=== PATIENT | male | born 2000 | race Caucasian/White ===

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

== ENCOUNTER 2019-08-22 09:18 | Inpatient (IN) ==
[2019-08-22] MEDS ORDERED: ONDANSETRON INJ 2 MG/ML 2 ML VIAL IV STA (09:32)
[2019-08-22] MEDS ORDERED: LORazepam 2 MG/4 ML VIAL IV STA ×3 (09:33→11:51)
[2019-08-22] MEDS ORDERED: FAMOTIDINE 20MG/5ML IV PUSH IV STA (09:33)
[2019-08-22] MEDS ORDERED: SODIUM CHLORIDE 0.9% 1000ML 1,000 ML IV SCH (09:45)
[2019-08-22 09:50] LABS: Basophils # (auto) 0.05 K/uL (0-0.2); Basophils % (auto) 0.5 %; Eosinophils # (auto) 0.32 K/uL (0-0.5); Eosinophils % (auto) 3.2 %; Hematocrit (blood only) 49.6 % (42-52); Hemoglobin 18.1 g/dL (14.0-18.0); Immature Granulocytes # (auto) 0.01 K/uL (0.00-0.02); Immature Granulocytes % (auto) 0.1 %; Lymphocytes # (auto) 3.25 K/uL (1.2-3.4); Lymphocytes % (auto) 32.6 %; Mean Corpuscular Hemoglobin 33.3 pg (25-34); Mean Corpuscular Hgb Conc 36.5 g/dL (32-36); Mean Corpuscular Volume 91.3 fL (80-100); Mean Platelet Volume 9.5 fL (7.4-10.4); Monocytes # (auto) 0.81 K/uL (0.11-0.59); Monocytes % (auto) 8.1 %; Neutrophils # (auto) 5.52 K/uL (1.4-6.5); Neutrophils % (auto) 55.5 %; Platelet Count 308 K/uL (130-400); RDW Coefficient of Variation 12.5 % (11.5-14.5); RDW Standard Deviation 41.6 fL (36.4-46.3); Red Blood Count 5.43 M/uL (4.7-6.1); White Blood Count 9.96 K/uL (4.8-10.8)
--- NOTE | 2019-08-22 10:00 | XRay Report ---
SINGLE VIEW CHEST CLINICAL HISTORY: Vomiting. FINDINGS: An AP, portable, upright chest radiograph is compared to study dated 05/31/2018. The cardio mediastinal silhouette is unremarkable. The lungs and pleural spaces are clear. No pneumothorax is se en. The bony thorax is grossly intact. IMPRESSION: No active disease in the chest. ACT 112: Negative or not required by law. Electronically signed by: Ramu Guzman M.D. 08/22/2019 9:58 AM
[2019-08-22 10:05] LABS: Albumin Level 5.1 gm/dl (3.4-5.0); BUN Creatinine Ratio 5.7 (10-20); Calcium 10.1 mg/dl (8.5-10.1); Creatinine Clr Calc Pharmacy 105.1 ml/min; Est GFR (African American) 98.6; Est GFR (Non-African American) 85.1; Potassium 3.9 mmol/L (3.5-5.1)
[2019-08-22 10:08] LABS: Albumin Globulin Ratio 1.3 (0.9-2); Bilirubin,Total 0.7 mg/dl (0.2-1); Total Protein 9.1 gm/dl (6.4-8.2)
[2019-08-22] MEDS ORDERED: GABAPENTIN 600 MG TAB PO STA (11:00)
[2019-08-22 11:15] LABS: Prothrombin Time 10.7 Seconds (9.0-12.0)
[2019-08-22 11:31] LABS: Magnesium 2.2 mg/dl (1.8-2.4)
--- NOTE | 2019-08-22 11:47 | Emergency Department Note ---
Entered by Alessia Cook acting as a scribe for History of Present Illness General Chief complaint: GI Assessment Stated complaint: THROWING UP BLOOD AND BLACK STUFF Time Seen by Provider: 08/22/19 09:32 Source: patient History of Present Illness Onset (ago): hour(s) (0200 this morning) Location: abdomen (vomiting) Severity: similar to prior episodes Pain Consistency: + other (persistent) Maximum Pain Intensity: 3 Quality: + other (vomiting) Exacerbated By: + other (drinking alcohol) Associated symptoms: + chest pain, + nausea/vomiting and + other (shaking) Treatments prior to arrival: none The patient is a 19 year old male presenting to the Emergency Department complaining of persistent vomiting starting at 0200 this morning. The patient reports that he began vomiting this morning and noticed blood in his emesis. He states that he regularly drinks 10 beers per day during the week and about 30 beer per day on the weekends and that he has been doing so for the past year. He explains that he had already been drinking when he started to vomit this morning but didnt drink any alcohol after he started to vomit. He notes that about an hour before he came into the Emergency Department he began shaking and thinks that he is starting to go through alcohol withdrawal. He adds that he is currently nauseous and experiencing chest discomfort. 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 Home Medications Home Medications Medication Instructions Recorded Confirmed Type albuterol sulfate 2 puff INHALATION Q6H PRN 05/31/18 08/22/19 History cetirizine [Zyrtec] 10 mg PO QAM 05/31/18 08/22/19 History calcium carbonate [Calcium 500] 500 mg PO QAM 02/27/19 08/22/19 History Prilosec OTC 20 mg PO QAM 08/22/19 08/22/19 History Allergies Allergy/AdvReac Type Severity Reaction Status Date / Time cefdinir Allergy Intermediate Unknown Unverified 08/22/19 10:52 Past Med/Surg History Medical History Asthma (Chronic) History of alcohol abuse Seasonal allergies (Chronic) Surgical History History of neck surgery (Resolved) EXCISION BRACHIAL CLEFT CYST Family History Other No pertinent family history Social History (Updated 08/25/19 @ 14:20 by Angie Mehta MD) Preferred Language: Malay Communication Ability: Effective 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 and A total of 10 systems reviewed and were otherwise negative Physical Exam Vital Signs Vital Signs - 24 hr 08/22/19 09:28 08/22/19 09:30 08/22/19 10:18 Temperature 36.7 C Temperature Source Oral Pulse Rate 120 H Pulse Rate [Finger] 124 H Respiratory Rate 22 18 Respiratory Effort / Characteristics Non-Labored Non-Labored Respiratory Depth Normal Normal Blood Pressure 158/91 H Blood Pressure [Right Arm] 147/80 H Blood Pressure Mean 113 Blood Pressure Mean [Right Arm] 102 Pulse Oximetry 99 95 Oxygen Delivery Method Room Air Room Air Room Air Sepsis Recent Fever Within 48 Hours No Sepsis New/Unexplained Change in Mental Status No Sepsis Action Taken by Nursing No Action Required 08/22/19 11:07 08/22/19 12:11 Temperature Temperature Source Pulse Rate Pulse Rate [Finger] 122 H 102 H Respiratory Rate 18 18 Respiratory Effort / Characteristics Non-Labored Respiratory Depth Normal Normal Blood Pressure Blood Pressure [Right Arm] 146/84 H 140/90 Blood Pressure Mean Blood Pressure Mean [Right Arm] 104 106 Pulse Oximetry 94 97 Oxygen Delivery Method Room Air Room Air Sepsis Recent Fever Within 48 Hours Sepsis New/Unexplained Change in Mental Status Sepsis Action Taken by Nursing Vital signs reviewed. General: The patient is a retching 19 year old male, in no significant distress. HEENT: No scleral icterus, PERRLA, neck supple. Atraumatic. Cardiovascular: Hypertensive. Tachycardic rate and regular rhythm, no extra sounds. Pulmonary: Clear to auscultation bilaterally, normal work of breathing. Abdomen: Epigastric tenderness. Soft, nondistended, positive bowel sounds. Musculoskeletal: Atraumatic, no peripheral edema. Neurologic: Tremulous. Patient awake alert and oriented x 3, full strength in all 4 extremities. Cranial nerves 2 through 12 grossly intact. Skin: Warm, dry, no rash Course Course 927: The patient was evaluated in room C7, and a complete history and physical examination were performed. 1032: I reevaluated the patient at this time. 1147: I updated the patient at this time. 1210: I discussed the patient's case with Dr. Chito Monreal [facility] hospitalist. She will evaluate the patient for further management. 1341: I spoke to the patients father at this time after obtaining consent from the patient. Administered Medications Discontinued Medications Acetaminophen (Tylenol) 650 mg PO Q4H PRN PRN Reason: Pain or Fever Stop: 09/21/19 14:17 Last Admin: 08/22/19 20:24 Dose: 650 mg Documented by: [id number] Albuterol (Ventolin Hfa) 2 puffs INH Q6H PRN PRN Reason: Shortness Of Breath Or Wheezing Stop: 09/21/19 14:29 Last Admin: 08/23/19 02:42 Dose: 2 puffs Documented by: [id number] Famotidine (Pepcid 20mg Iv Push) 20 mg IV ONE STA Stop: 08/22/19 09:34 Last Admin: 08/22/19 09:39 Dose: 20 mg Documented by: [id number] Folic Acid (Folvite) 1 mg PO QAM [facility] Stop: 09/21/19 14:29 Last Admin: 08/22/19 15:29 Dose: 1 mg Documented by: [id number] Gabapentin (Neurontin) 1,200 mg PO NOW STA Stop: 08/22/19 11:01 Last Admin: 08/22/19 11:08 Dose: 1,200 mg Documented by: [id number] Gabapentin (Neurontin) 1,200 mg PO TODAY@ [facility] Stop: 08/22/19 14:19 Last Admin: 08/22/19 15:51 Dose: Not Given Documented by: [id number] Gabapentin (Neurontin) 600 mg PO Q6H [facility] Stop: 08/23/19 01:01 Last Admin: 08/23/19 00:14 Dose: 600 mg Documented by: [id number] Admin: 08/22/19 20:29 Dose: 600 mg Documented by: [id number] Lorazepam (Ativan) 2 mg in 4 mls @ 4 mls/min IV NOW STA Stop: 08/22/19 09:34 Last Admin: 08/22/19 09:40 Dose: 4 mls/min Documented by: [id number] Sodium Chloride (Nss 1000ml) 1,000 mls @ 999 mls/hr IV .Q1H1M EDGARDO Stop: 08/22/19 10:45 Last Infusion: 08/22/19 10:47 Dose: 0 mls/hr Documented by: [id number] Admin: 08/22/19 09:40 Dose: 999 mls/hr Documented by: [id number] Lorazepam (Ativan) 2 mg in 4 mls @ 4 mls/min IV NOW STA Stop: 08/22/19 10:59 Last Admin: 08/22/19 11:08 Dose: 4 mls/min Documented by: [id number] Sodium Chloride (Nss 1000ml) 1,000 mls @ 999 mls/hr IV .Q1H1M ONE Stop: 08/22/19 12:48 Last Infusion: 08/22/19 13:39 Dose: 0 mls/hr Documented by: [id number] Admin: 08/22/19 12:29 Dose: 999 mls/hr Documented by: [id number] Lorazepam (Ativan) 2 mg in 4 mls @ 4 mls/min IV NOW STA Stop: 08/22/19 11:52 Last Admin: 08/22/19 12:24 Dose: Not Given Documented by: [id number] Multivitamins 10 ml/ Thiamine HCl 100 mg/ Folic Acid 1 mg/Sodium Chloride 1,011.2 mls @ 500 mls/hr IV .Q2H2M ONE Stop: 08/22/19 16:31 Last Infusion: 08/22/19 17:30 Dose: 0 mls/hr Documented by: [id number] Admin: 08/22/19 15:28 Dose: 500 mls/hr Documented by: [id number] Potassium Chloride/Sodium Chloride (Normal Saline W/20 Meq Kcl) 20 meq in 1,000 mls @ 100 mls/hr IV .Q10H EDGARDO Stop: 09/21/19 16:29 Last Admin: 08/23/19 02:40 Dose: 100 mls/hr Documented by: [id number] Infusion: 08/23/19 02:40 Dose: 100 mls/hr Documented by: [id number] Admin: 08/22/19 17:34 Dose: 100 mls/hr Documented by: [id number] Famotidine 20 mg/ Syringe 5 mls @ 2.5 mls/min IV BID EDGARDO Stop: 09/21/19 20:59 Last Admin: 08/22/19 20:33 Dose: 2.5 mls/min Documented by: [id number] Ioversol (Optiray 320 100ml) 94 ml IV ONCE PRN PRN Reason: Interaction Checking Stop: 08/26/19 15:06 Last Admin: 08/22/19 15:07 Dose: 94 ml Documented by: [id number] Ondansetron HCl (Zofran) 4 mg IV NOW STA Stop: 08/22/19 09:33 Last Admin: 08/22/19 09:39 Dose: 4 mg Documented by: [id number] Pantoprazole Sodium (Protonix) 40 mg PO BID EDGARDO Stop: 09/21/19 20:59 Last Admin: 08/22/19 20:30 Dose: 40 mg Documented by: [id number] Thiamine HCl (Vitamin B-1) 100 mg PO QAM [facility] Stop: 09/21/19 14:29 Last Admin: 08/22/19 15:29 Dose: 100 mg Documented by: [id number] Medical Decision Making Differential Diagnosis Etiologies such as toxicologic, alcohol withdrawal, infection, hypoglycemia, electrolyte abnormalities, cardiac sources, intracerebral event, neurologic, as well as others were entertained. Medical Records Attestation: I reviewed the patient's medical records. Home Medications Current Medication List: was personally reviewed by me Laboratory Data Attestation: I reviewed the patient's lab results. Result diagrams: 08/23/19 05:54 08/23/19 05:54 Lab Results 08/22/19 08/22/19 08/22/19 Range/Units 09:33 09:33 09:33 WBC 9.96 (4.8-10.8) K/uL RBC 5.43 (4.7-6.1) M/uL Hgb 18.1 H (14.0-18.0) g/dL Hct 49.6 (42-52) % MCV 91.3 (80-100) fL MCH 33.3 (25-34) pg MCHC 36.5 H (32-36) g/dL RDW Std Deviation 41.6 (36.4-46.3) fL RDW Coeff of Naz 12.5 (11.5-14.5) % Plt Count 308 (130-400) K/uL MPV 9.5 (7.4-10.4) fL Immature Gran % (Auto) 0.1 % Neut % (Auto) 55.5 % Lymph % (Auto) 32.6 % [place] % (Auto) 8.1 % Eos % (Auto) 3.2 % Baso % (Auto) 0.5 % Immature Gran # (Auto) 0.01 (0.00-0.02) K/uL Neut # (Auto) 5.52 (1.4-6.5) K/uL Lymph # (Auto) 3.25 (1.2-3.4) K/uL [place] # (Auto) 0.81 H (0.11-0.59) K/uL Eos # (Auto) 0.32 (0-0.5) K/uL Baso # (Auto) 0.05 (0-0.2) K/uL PT (9.0-12.0) Seconds INR (0.9-1.1) Sodium 138 (136-145) mmol/L Potassium 3.9 (3.5-5.1) mmol/L Chloride 101 (98-107) mmol/L Carbon Dioxide 24 (21-32) mmol/L Anion Gap 14.0 H (3-11) BUN 7 (7-18) mg/dl Creatinine 1.21 (0.6-1.4) mg/dl Est Cr Clr Drug Dosing 105.1 ml/min Est GFR ( Amer) 98.6 Est GFR (Non-Af Amer) 85.1 BUN/Creatinine Ratio 5.7 L (10-20) Glucose 107 H (70-99) mg/dl Calcium 10.1 (8.5-10.1) mg/dl Magnesium 2.2 (1.8-2.4) mg/dl Total Bilirubin 0.7 (0.2-1) mg/dl AST 62 H (15-37) U/L ALT 113 H (12-78) U/L Alkaline Phosphatase 100 (45-117) U/L Total Protein 9.1 H (6.4-8.2) gm/dl Albumin 5.1 H (3.4-5.0) gm/dl Globulin 4.0 (2.5-4.0) gm/dl Albumin/Globulin Ratio 1.3 (0.9-2) Lipase 91 (73-393) U/L Ethyl Alcohol mg/dL (0-3) mg/dl Blood Type O Negative Antibody Screen NEGATIVE 08/22/19 08/22/19 Range/Units 09:33 09:39 WBC (4.8-10.8) K/uL RBC (4.7-6.1) M/uL Hgb (14.0-18.0) g/dL Hct (42-52) % MCV (80-100) fL MCH (25-34) pg MCHC (32-36) g/dL RDW Std Deviation (36.4-46.3) fL RDW Coeff of Naz (11.5-14.5) % Plt Count (130-400) K/uL MPV (7.4-10.4) fL Immature Gran % (Auto) % Neut % (Auto) % Lymph % (Auto) % [place] % (Auto) % Eos % (Auto) % Baso % (Auto) % Immature Gran # (Auto) (0.00-0.02) K/uL Neut # (Auto) (1.4-6.5) K/uL Lymph # (Auto) (1.2-3.4) K/uL [place] # (Auto) (0.11-0.59) K/uL Eos # (Auto) (0-0.5) K/uL Baso # (Auto) (0-0.2) K/uL PT 10.7 (9.0-12.0) Seconds INR 1.0 (0.9-1.1) Sodium (136-145) mmol/L Potassium (3.5-5.1) mmol/L Chloride (98-107) mmol/L Carbon Dioxide (21-32) mmol/L Anion Gap (3-11) BUN (7-18) mg/dl Creatinine (0.6-1.4) mg/dl Est Cr Clr Drug Dosing ml/min Est GFR ( Amer) Est GFR (Non-Af Amer) BUN/Creatinine Ratio (10-20) Glucose (70-99) mg/dl Calcium (8.5-10.1) mg/dl Magnesium (1.8-2.4) mg/dl Total Bilirubin (0.2-1) mg/dl AST (15-37) U/L ALT (12-78) U/L Alkaline Phosphatase (45-117) U/L Total Protein (6.4-8.2) gm/dl Albumin (3.4-5.0) gm/dl Globulin (2.5-4.0) gm/dl Albumin/Globulin Ratio (0.9-2) Lipase (73-393) U/L Ethyl Alcohol mg/dL 124.9 H (0-3) mg/dl Blood Type Antibody Screen Imaging Data Radiologist's Impression: Radiology results as stated below per my review and the radiologist's interpretation: SINGLE VIEW CHEST CLINICAL HISTORY: Vomiting. FINDINGS: An AP, portable, upright chest radiograph is compared to study dated 05/31/2018. The cardiomediastinal silhouette is unremarkable. The lungs and pleural spaces are clear. No pneumothorax is seen. The bony thorax is grossly intact. IMPRESSION: No active disease in the chest. ACT 112: Negative or not required by law. Electronically signed by: Ramu Guzman M.D. 08/22/2019 9:58 AM Blood Pressure Blood Pressure Findings: Elevated blood pressure Blood Pressure Disposition: further management by hospitalist MDM Narrative This pt was evaluated and appeared to be in no distress. IV access was obtained and lab work was drawn. Pt was placed on the hall monitor. Pt was given ativan 2 mg IV with NSS. A banana bag was ordered. Pt was given IV pepcid and zofran. He did receive additional IV ativan for persistent tachycardia and HTN. PT was forthcoming with his significant ETOH intake. Dad arrived at the bedside and pt asked that I speak with him. A conversation with pt and father was had regarding the seriousness of the situation. Pt seems to be withdrawing despite and ETOH level of 125. He does not appear to have a significant GI bleed. Pt will be evaluated by the hospitalist service for further management. Pt and father are aware of the plan and agree. Impression & Plan Alcohol withdrawal, Vomiting Discharge Plan Visit Data *Final* Discharge Date/Time: 08/22/19 13:37 Chief Complaint: GI Assessment Stated Complaint: THROWING UP BLOOD AND BLACK STUFF ED Provider: Angie Mehta Discharge Problem: Alcohol withdrawal, Vomiting Patient Disposition: Admitted As Inpatient Discharge Instructions Interventions: ED Discharge Assessment Last Done: 08/22/19 13:37 Discharge Problem: Alcohol withdrawal Qualifiers: Complication of substance-induced condition: with unspecified complication Qualified Code(s): F10.239 - Alcohol dependence with withdrawal, unspecified Vomiting Qualifiers: Vomiting type: unspecified Vomiting Intractability: intractable Nausea presence: with nausea Qualified Code(s): R11.2 - Nausea with vomiting, unspecified The scribe's documentation has been prepared under my direction and personally reviewed by me in its entirety. I confirm that the note above accurately reflects all work, treatment, procedures, and medical decision making performed by me.
[2019-08-22] MEDS ORDERED: SODIUM CHLORIDE 0.9% 1000ML 1,000 ML IV ONE (11:48)
[2019-08-22] MEDS ORDERED: GABAPENTIN 1200MG ALCOHOL WITHDRAWAL LOAD PO STA (14:18)
[2019-08-22] MEDS ORDERED: ACETAMINOPHEN 325 MG TAB PO PRN (14:18)
[2019-08-22] MEDS ORDERED: PROMETHAZINE HCL 25 MG in SODIUM CHLORIDE 0.9% 50 ML IV PRN (14:18)
[2019-08-22] MEDS ORDERED: ALUMINUM/MAGNESIUM SUSP 30 ML UDC PO PRN (14:18)
[2019-08-22] MEDS ORDERED: GABAPENTIN 600 MG TAB PO SCH (14:18)
[2019-08-22] MEDS ORDERED: LORazepam 1 MG/2 ML VIAL IV PRN (14:18)
[2019-08-22] MEDS ORDERED: ONDANSETRON INJ 2 MG/ML 2 ML VIAL IV PRN (14:18)
[2019-08-22] MEDS ORDERED: MAGNESIUM HYDROXIDE SUSP 30 ML UDC PO PRN (14:18)
[2019-08-22] MEDS ORDERED: THIAMINE HCL 100 MG TAB PO SCH (14:30)
[2019-08-22] MEDS ORDERED: MULTI-VITAMIN INFUSION 10 ML, THIAMINE HCL 100 MG, FOLIC ACID 1 MG in SODIUM CHLORIDE 0... IV ONE (14:30)
[2019-08-22] MEDS ORDERED: ALBUTEROL HFA 8 GM INHALER INH PRN (14:30)
[2019-08-22] MEDS ORDERED: FOLIC ACID 1 MG TAB PO SCH (14:30)
[2019-08-22 14:44] LABS: Basophils # (auto) 0.05 K/uL (0-0.2); Basophils % (auto) 0.4 %; Eosinophils # (auto) 0.18 K/uL (0-0.5); Eosinophils % (auto) 1.6 %; Hematocrit (blood only) 45.4 % (42-52); Hemoglobin 16.1 g/dL (14.0-18.0); Immature Granulocytes # (auto) 0.01 K/uL (0.00-0.02); Immature Granulocytes % (auto) 0.1 %; Lymphocytes # (auto) 2.01 K/uL (1.2-3.4); Lymphocytes % (auto) 17.9 %; Mean Corpuscular Hgb Conc 35.5 g/dL (32-36); Mean Platelet Volume 9.4 fL (7.4-10.4); Monocytes # (auto) 0.84 K/uL (0.11-0.59); Monocytes % (auto) 7.5 %; Neutrophils # (auto) 8.16 K/uL (1.4-6.5); Neutrophils % (auto) 72.5 %; Platelet Count 257 K/uL (130-400); RDW Coefficient of Variation 12.5 % (11.5-14.5); RDW Standard Deviation 42.4 fL (36.4-46.3); Red Blood Count 4.88 M/uL (4.7-6.1); White Blood Count 11.25 K/uL (4.8-10.8)
[2019-08-22] MEDS ORDERED: INFLUENZA VIRUS QUAD VACCINE 0.5 ML SYR IM ONE (14:46)
[2019-08-22] MEDS ORDERED: INFLUENZA ADMINISTRATION CHARGE ONE (14:46)
[2019-08-22 14:55] LABS: INR 1.1 (0.9-1.1); Partial Thromboplastin Time 26.8 Seconds (21.0-31.0); Prothrombin Time 10.9 Seconds (9.0-12.0)
[2019-08-22] MEDS ORDERED: IOVERSOL 100ml IV PRN (15:07)
--- NOTE | 2019-08-22 15:08 | History & Physical Report ---
Date of Service August 22, 2019 Assessment & Plan (1) Alcohol withdrawal: Admit to PCU on telemetry for alcohol withdrawal. [facility] protocol. Replenished thiamine and folate. Follow-up CBC CMP and replenish electrolytes as necessary. Seizure precautions. DVT prophylaxis SCDs and teds since patient reports blood-tinged vomitus. CT abdomen and pelvis pending for blood-tinged vomitus. Check CBC every 8 hours. Consider consulting GI if any blood loss or vomiting of blood increases. Assuming at this point did patient has a mild gastritis. He was taking occasionally ibuprofen as needed. Started famotidine 20 mg IV in the ER and continued twice a day. Full code Present on Admission?: Yes (2) Vomiting: As discussed above. Keep n.p.o. for now and then advance diet as tolerated. CT abdomen and pelvis with IV contrast pending to rule out possible ulcer. Present on Admission?: Yes (3) History of neck surgery: Stable now no issues with that. Present on Admission?: Yes (4) Seasonal allergies: Stable, continue sertraline 10 mg p.o. every morning. Present on Admission?: Yes (5) Asthma: Stable, continue albuterol sulfate 2 puffs every 6 hours as needed. Present on Admission?: Yes History of Present Illness Chief Complaint: Alcohol withdrawal Primary Care Provider: [facility] The patient is a 19 years old male with history of neck surgery seasonal allergies and asthma who was brought to the emergency department with complaint of persistent vomiting started at 2 AM this morning. The patient reports that he began vomiting this morning and noticed blood in his emesis. It was not a lot of blood in his emesis. But he was tinged. Patient states that he regularly drinks 10 beers per day during the week and about 30 beers per day on the weekends and that he has been doing so for the past year. Patient explains that he had already been drinking when he started to vomit this morning but did not drink any alcohol after he started to vomit. Patient noted that about an hour before he came to the emergency room he began shaking and thinks that he started to go through alcohol withdrawal. Patient has it he is currently nauseated and experiencing chest discomfort due to vomiting. Patient denies any fever, chills, chest pain, abdominal pain, frequency, urgency, melena, hematuria, dysuria. Patient denies gross hematemesis. Patient denies taking any medication to relieve his symptoms. Patient denies sick contact. Labs are reviewed: WBC is 11.25, hemoglobin 16.1, hematocrit 45.4, platelets 257, neutrophils 8.16, increased left shift. PT 10.9, INR 1.1, APTT 26.8, sodium 138, potassium 3.9, chloride 101, carbon dioxide 24, anion gap 14, BUN 7, creatinine 1.21, GFR 85.1, BUN creatinine,total bilirubin 0.7, AST 62, ALT 113, alkaline phosphatase 100, total protein 9.1, albumin 5.1, globulin 4, lipase 91, vitamin B12 pending folate pending. Ethynyl alcohol 124.9. Chest x-ray shows the cardiomediastinal silhouette is unremarkable. The lungs and pleural spaces are clear. No active disease in the chest. CT abdomen and pelvis with IV contrast pending. Patient is admitted to PCU on telemetry for acute alcohol withdrawal syndrome. Allergies Allergy/AdvReac Type Severity Reaction Status Date / Time cefdinir Allergy Intermediate Unknown Unverified 08/22/19 10:52 Home Medications Home Medications Medication Instructions Recorded Confirmed Type albuterol sulfate [ProAir HFA] 2 puff INHALATION Q6H PRN 05/31/18 08/22/19 History cetirizine [Zyrtec] 10 mg PO QAM 05/31/18 08/22/19 History calcium carbonate [Calcium 500] 500 mg PO QAM 02/27/19 08/22/19 History ibuprofen 200 mg PO Q6H PRN 08/22/19 08/22/19 History omeprazole magnesium [Prilosec OTC] 20 mg PO QAM 08/22/19 08/22/19 History Past Med/Surg History Medical History Asthma (Chronic) History of alcohol abuse Seasonal allergies (Chronic) Surgical History History of neck surgery (Resolved) EXCISION BRACHIAL CLEFT CYST Family History Other No pertinent family history Social History Preferred Language: Australian Communication Ability: Effective Snowboarder Required: No Beliefs That Will Affect Care: None Current Living Situation: Other Current Living Situation Comment: has one room mate Other Information That Helps Us Care for You: No Feels Safe at Home: Yes Safety Concerns: Feels Safe At This Time Smoking Status: Current every day smoker Tobacco Type: cigarettes ; Do You Dip or Chew Tobacco: No ; Hx Alcohol Use: Yes Alcohol type: beer Hx Substance Use: No Review of Systems Review of Systems: All systems reviewed & are unremarkable except as noted in HPI & below Physical Exam Constitutional: WD/WN, vitals as above well developed and + obese Eyes: PERRL, conjunctivae normal, anicteric sclerae ENMT: external ear and nose normal, oropharynx normal Neck: trachea midline, no thyromegaly Respiratory: normal respiratory effort, lungs clear to auscultation Cardiovascular: RRR, no murmur, no edema Gastrointestinal (Abdomen): normal bowel sounds, soft, nontender, no hepatosplenomegaly Musculoskeletal: no cyanosis or clubbing, extremities motor strength 5/5 Neurologic: PERRL, EOMI, accommodation nl, no face palsy, no dysarthria Psychiatric: Suicidal Thoughts: denies suicidal plan Homicidal Thoughts: denies homicidal plan Insight: + limited insight And alcohol withdrawal and shaking. Lymphatic: no cervical or axillary lymphadenopathy Results & Data Vital Signs (Past 12 Hours) Vital Signs Temp Pulse Pulse Resp BP BP Pulse Ox 08/22/19 13:53 36.7 C 107 H 16 140/80 96 08/22/19 13:36 101 H 20 111/84 97 08/22/19 12:11 102 H 18 140/90 97 08/22/19 11:07 122 H 18 146/84 H 94 08/22/19 10:18 124 H 18 147/80 H 95 08/22/19 09:28 36.7 C 120 H 22 158/91 H 99 Code Status & VTE Plan Code Status Full code VTE Prophylaxis Plan VTE Prophylaxis will be ordered: Yes PG Care Time/CCT Total # of Minutes Spent Total Time Spent with Patient: Total time spent is greater than 50% in coordination of care (as documented) at patient's floor/unit and/or counseling patient: Coding Level of Care Code 87652 Initial Inpt Care Lvl 3 Diagnoses Alcohol withdrawal F10.239 Complication of substance-induced condition: with unspecified complication Vomiting R11.2 Nausea presence: with nausea Vomiting Intractability: intractable Vomiting type: unspecified History of neck surgery Z98.890 Seasonal allergies J30.2 Asthma J45.909 (1) Alcohol withdrawal Complication of substance-induced condition: with unspecified complication Qualified Code(s): F10.239 - Alcohol dependence with withdrawal, unspecified (2) Vomiting Nausea presence: with nausea Vomiting Intractability: intractable Vomiting type: unspecified Qualified Code(s): R11.2 - Nausea with vomiting, unspecified
--- NOTE | 2019-08-22 15:20 | CT Scan Report ---
ABDOMEN AND PELVIS CT WITH IV CONTRAST CT DOSE: 460.30 mGy.cm HISTORY: Acute nausea and vomiting blood in vomitus TECHNIQUE: Multiaxial CT images of the abdomen and pelvis were performed following the IV administrat ion of 94 cc of Optiray 320, A dose lowering technique was utilized adhering to the principles of AL MANDI. COMPARISON STUDY: Right upper quadrant abdominal ultrasound 02/27/2019 FINDINGS: Clear lung bases. No pneumatosis or pneumoperitoneum. The imaged inferior cardiac chambers are unrema rkable. Spleen, pancreas, adrenal glands, and gallbladder appear unremarkable. There is suggestion of hepatic steatosis. No hepatic mass lesion or biliary ductal dilation. There is patency of the hepati c and portal veins. Kidneys, ureters, urinary bladder and prostate appear unremarkable. Aorta and IVC are within normal limits. There is no adenopathy. Mild circumferential wall thickening of the distal esophagus. No bowel obstruction or bowel wall thic kening. Terminal ileum is unremarkable. The appendix is noninflamed and nondilated. No ascites or mes enteric inflammation. Gynecomastia. Small posterior disc osteophyte complex at L5-S1 with mild assembler seat ior disc space narrowing. Bones appear intact. IMPRESSION: 1. No bowel obstruction or bowel wall thickening. Normal appendix. 2. Mild nonspecific distal esophageal wall thickening. ACT 112: Negative or not required by law. The above report was generated using voice recognition software. It may contain grammatical, syntax o r spelling errors. Electronically signed by: Lex Nice M.D. 08/22/2019 3:18 PM
[2019-08-22 15:34] LABS: Folate (Folic Acid) 12.54 ng/ml (>5.38)
--- NOTE | 2019-08-22 15:55 | Electrocardiogram Report ---
Test Reason : Blood Pressure : / mmHG Vent. Rate : 112 BPM Atrial Rate : 112 BPM P-R Int : 126 ms QRS Dur : 088 ms QT Int : 346 ms P-R-T Axes : 069 007 034 degrees QTc Int : 472 ms Sinus tachycardia Otherwise normal ECG No previous ECGs available Confirmed by Tad Lee ([id number]) on 08/22/2019 3:55:04 PM Referred By: REFERRED SELF Confirmed By:Tad Lee
[2019-08-22 17:28] LABS: Amphetamines+Metham, Urine Neg (Neg); Barbiturates, Urine Neg (Neg); Benzodiazepine, Urine Neg (Neg); Cocaine, Urine Neg (Neg); MDMA (Ecstacy), Urine Neg (Neg); Methadone, Urine Neg (Neg); Opiate, Urine Neg (Neg); Phencyclidine, Urine Neg (Neg)
[2019-08-22] MEDS: NSS + 20MEQ KCL 20 MEQ/1,000 ML BAG IV SCH (17:34)
[2019-08-22] MEDS: GABAPENTIN 600 MG TAB PO SCH (20:29)
[2019-08-22] MEDS ORDERED: PANTOprazole 40 MG TAB PO SCH (21:00)
[2019-08-22] MEDS ORDERED: FAMOTIDINE 20 MG in SYRINGE 3 ML IV SCH (21:00)
[2019-08-22 22:29] LABS: Basophils # (auto) 0.04 K/uL (0-0.2); Basophils % (auto) 0.6 %; Eosinophils # (auto) 0.33 K/uL (0-0.5); Eosinophils % (auto) 5.3 %; Hematocrit (blood only) 41.9 % (42-52); Hemoglobin 14.3 g/dL (14.0-18.0); Immature Granulocytes # (auto) 0.01 K/uL (0.00-0.02); Immature Granulocytes % (auto) 0.2 %; Lymphocytes # (auto) 1.77 K/uL (1.2-3.4); Lymphocytes % (auto) 28.7 %; Mean Corpuscular Hemoglobin 32.1 pg (25-34); Mean Corpuscular Hgb Conc 34.1 g/dL (32-36); Mean Corpuscular Volume 94.2 fL (80-100); Mean Platelet Volume 9.5 fL (7.4-10.4); Monocytes # (auto) 0.48 K/uL (0.11-0.59); Monocytes % (auto) 7.8 %; Neutrophils # (auto) 3.54 K/uL (1.4-6.5); Neutrophils % (auto) 57.4 %; Platelet Count 189 K/uL (130-400); RDW Coefficient of Variation 12.6 % (11.5-14.5); RDW Standard Deviation 43.2 fL (36.4-46.3); Red Blood Count 4.45 M/uL (4.7-6.1); White Blood Count 6.17 K/uL (4.8-10.8)
[2019-08-23] MEDS: GABAPENTIN 600 MG TAB PO SCH (00:14)
[2019-08-23] MEDS: NSS + 20MEQ KCL 20 MEQ/1,000 ML BAG IV SCH (02:40)
[2019-08-23 06:37] LABS: Basophils # (auto) 0.04 K/uL (0-0.2); Basophils % (auto) 0.8 %; Eosinophils # (auto) 0.52 K/uL (0-0.5); Hematocrit (blood only) 41.4 % (42-52); Hemoglobin 13.7 g/dL (14.0-18.0); Immature Granulocytes # (auto) 0.01 K/uL (0.00-0.02); Immature Granulocytes % (auto) 0.2 %; Lymphocytes # (auto) 2.03 K/uL (1.2-3.4); Lymphocytes % (auto) 42.8 %; Mean Corpuscular Hemoglobin 31.8 pg (25-34); Mean Corpuscular Hgb Conc 33.1 g/dL (32-36); Mean Corpuscular Volume 96.1 fL (80-100); Mean Platelet Volume 10.1 fL (7.4-10.4); Monocytes # (auto) 0.53 K/uL (0.11-0.59); Monocytes % (auto) 11.2 %; Neutrophils # (auto) 1.61 K/uL (1.4-6.5); Platelet Count 196 K/uL (130-400); RDW Coefficient of Variation 12.4 % (11.5-14.5); RDW Standard Deviation 43.6 fL (36.4-46.3); Red Blood Count 4.31 M/uL (4.7-6.1); White Blood Count 4.74 K/uL (4.8-10.8)
[2019-08-23 07:11] LABS: Albumin Globulin Ratio 1.1 (0.9-2); Albumin Level 3.3 gm/dl (3.4-5.0); BUN Creatinine Ratio 9.6 (10-20); Bilirubin,Total 0.9 mg/dl (0.2-1); Calcium 8.4 mg/dl (8.5-10.1); Creatinine Clr Calc Pharmacy 119.5 ml/min; Est GFR (African American) 111.9; Est GFR (Non-African American) 96.5; Potassium 3.9 mmol/L (3.5-5.1); Total Protein 6.3 gm/dl (6.4-8.2)
[2019-08-23] MEDS ORDERED: CETIRIZINE HCL 10 MG TABLET PO SCH (09:00)
[2019-08-23] MEDS ORDERED: CALCIUM CARBONATE 1250MG TAB PO SCH (09:00)
[2019-08-23] MEDS ORDERED: GABAPENTIN 600 MG TAB PO SCH (09:01)
--- NOTE | 2019-08-23 16:34 | Discharge Summary ---
Date of Service August 23, 2019 Admission HPI Per Admitting Provider The patient is a 19 years old male with history of neck surgery seasonal allergies and asthma who was brought to the emergency department with complaint of persistent vomiting started at 2 AM this morning. The patient reports that he began vomiting this morning and noticed blood in his emesis. It was not a lot of blood in his emesis. But he was tinged. Patient states that he regularly drinks 10 beers per day during the week and about 30 beers per day on the weekends and that he has been doing so for the past year. Patient explains that he had already been drinking when he started to vomit this morning but did not drink any alcohol after he started to vomit. Patient noted that about an hour before he came to the emergency room he began shaking and thinks that he started to go through alcohol withdrawal. Patient has it he is currently nauseated and experiencing chest discomfort due to vomiting. Patient denies any fever, chills, chest pain, abdominal pain, frequency, urgency, melena, hematuria, dysuria. Patient denies gross hematemesis. Patient denies taking any medication to relieve his symptoms. Patient denies sick contact. Labs are reviewed: WBC is 11.25, hemoglobin 16.1, hematocrit 45.4, platelets 257, neutrophils 8.16, increased left shift. PT 10.9, INR 1.1, APTT 26.8, sodium 138, potassium 3.9, chloride 101, carbon dioxide 24, anion gap 14, BUN 7, creatinine 1.21, GFR 85.1, BUN creatinine,total bilirubin 0.7, AST 62, ALT 113, alkaline phosphatase 100, total protein 9.1, albumin 5.1, globulin 4, lipase 91, vitamin B12 pending folate pending. Ethynyl alcohol 124.9. Chest x-ray shows the cardiomediastinal silhouette is unremarkable. The lungs and pleural spaces are clear. No active disease in the chest. CT abdomen and pelvis with IV contrast pending. Patient is admitted to PCU on telemetry for acute alcohol withdrawal syndrome. 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 Discharge Exam Constitutional WD/WN, vitals as above well developed and + obese Eyes PERRL, conjunctivae normal, anicteric sclerae ENMT external ear and nose normal, oropharynx normal Neck trachea midline, no thyromegaly Respiratory normal respiratory effort, lungs clear to auscultation Cardiovascular RRR, no murmur, no edema Gastrointestinal (Abdomen) normal bowel sounds, soft, nontender, no hepatosplenomegaly Musculoskeletal no cyanosis or clubbing, extremities motor strength 5/5 Neurologic PERRL, EOMI, accommodation nl, no face palsy, no dysarthria Psychiatric Suicidal Thoughts: denies suicidal plan Homicidal Thoughts: denies homicidal plan Insight: + limited insight Lymphatic no cervical or axillary lymphadenopathy Discharge Data Allergies Allergy/AdvReac Type Severity Reaction Status Date / Time cefdinir Allergy Intermediate Unknown Unverified 08/22/19 10:52 Consultations 08/22/19 12:21 ED Decision to Admit Stat 08/22/19 14:18 Consult Case Management - Discharge Planning Routine Ordered Studies 08/22/19 14:18 CT abd pelvis IV con only Stat Hospital Course (1) Vomiting: Alcoholic gastritis with a possible Laureen-Chin tear. By discharge no emesis for about 20 hours. Stable hgb. The patient requested discharge to go to an exam prep in the morning. Discharged off NSAIDs and on a PPI for at least 2-4 weeks. We discussed his excessive alcohol consumption. I recommended complete abstinence for several weeks, and then 1-2 drinks at most per day after that. I feel like he is pre-contemplative, saying "Ok." or "Sure" to most questions and not really involved in the conversation. I also did newspaper delivery counselor he and his dad about alcohol withdrawal and the signs/symptoms. He has had some tremors in the past, but never any seizures or D T symptoms. I warned them both about these symptoms and what to watch out for. Both he and his dad still want him to go to his exam prep, so I discharged them with newspaper delivery counselor to have a low threshold to seek medical care if he appears to enter alcohol withdrawal. (2) Alcohol withdrawal: No sign on discharge. As above, counseled to return to medical care with any sign of withdrawal. (3) History of neck surgery: Stable now no issues with that. (4) Seasonal allergies: Stable, continue sertraline 10 mg p.o. every morning. (5) Asthma: Stable, continue albuterol sulfate 2 puffs every 6 hours as needed. Total Time Total Time Spent Total Time Spent (In Minutes): 35 Discharge Plan Discharge Items Patient Disposition: Home - Self-Care Reason For Visit: ALCOHOL WITHDROWAL Discharge Diagnosis: Alcohol-related gastritis Activity: Resume your previous activity Non-emergency contact: Primary Care Provider Call non-emergency contact if: your symptoms worsen and your temperature is above 101 Follow-up/Referrals: [facility] [Primary Care Provider] - 09/05/19 9:20 am Diet: Regular Addtl Attending Provider Instructions: You were admitted to the hospital with nausea and vomiting. There was a little blood in the vomit from your report, and this may have been caused by stomach irritation from your alcohol intake. Please do not drink any alcohol for at least 2-3 weeks. At that point, you need to drink closer to 1-2 drinks/day instead of the 10 drinks/day you are currently drinking. Do not take ibuprofen, Motrin, naproxen, or other NSAIDs for at least 1 month, then only take the lowest effective doses. For pain or headache, Tylenol at the normal bottle-recommended doses is safe for your liver, even with the history of drinking. Please monitor yourself for signs of alcohol withdrawal. The most dangerous complications from withdrawal are seizures and delirium tremens (DTs). If you start to get shaky, get a fast heart rate, start to have tremors, or see/hear things that are not there, you must come back to the hospital to ensure your safety. Pending Studies at Discharge: No Stand-Alone Forms: My [facility], Smoking Cessation Medications and DC Order Prescriptions: Continued cetirizine [Zyrtec] 10 mg Tablet 10 mg PO QAM RF: 0 albuterol sulfate 90 mcg/actuation HFA aerosol inhaler 2 puff Inhalation Q6H PRN (Reason: Shortness Of Breath Or Wheezing) RF: 0 Prilosec OTC 20 mg Tablet,Delayed Release (Dr/Ec) 20 mg PO QAM RF: 0 calcium carbonate [Calcium 500] 500 mg calcium (1,250 mg) Tablet 500 mg PO QAM RF: 0 Discontinued ibuprofen 200 mg Tablet 200 mg PO Q6H PRN (Reason: Pain) RF: 0 Discharge Orders: Discharge Order (Routine); Ordered 08/23/19 Ordered By: Jesús Huerta Admission Data Admit Date/Time: 08/22/19 13:19 Attending Provider: Jesús Huerta Admit Provider: Riley Dale Primary Care Provider: [facility] Other Providers: Jesús Huerta Other Interventions: Discharge Summary Assessment (RN) Last Done: 08/23/19 08:26 DC Date/Time DO NOT enter until pt leaves facility: 08/23/19 08:35 Coding Level of Care Code D/C Day Management >30 mins Diagnoses Vomiting R11.2 Nausea presence: with nausea Vomiting Intractability: intractable Vomiting type: unspecified Alcohol withdrawal F10.239 Complication of substance-induced condition: with unspecified complication History of neck surgery Z98.890 Seasonal allergies J30.2 Asthma J45.909
[2019-08-24] MEDS ORDERED: GABAPENTIN 600 MG TAB PO SCH (13:01)
[2019-08-26] MEDS ORDERED: GABAPENTIN 600 MG TAB PO SCH (01:01)
== END 2019-08-23 08:35 | disposition home or self-care (01) | DRG 897 ==
LOC: ED 09:18 → 2S 13:19 → SUATTDRO 13:19 → 2S 13:37